=== PATIENT | female | born 1965 ===

== ENCOUNTER 2024-05-11 12:41 | Emergency (ER) | payer BC ==
--- OUTSIDE RECORDS SUMMARY | 2024-05-11 12:45 | XMS REPORT | Continuity of Care Document ---
Author Name Unknown Address [address] [facility] [address] [place] [address] Organization [facility] [place] Address [address] [facility] [address] [place] [address] Care Team Providers Care Precision Machinist Name Role Phone Emily Franz Attending Clinician Unavailable Problems Condition Name Condition Details Condition Category Status Onset Date Resolution Date Last Treatment Date Treating Clinician Comments Source [id number] Long-term current use of injectable noninsulin antidiabet ic medication Problem [facility] [id number] shelter (current) use of oral hypoglycem ic drugs Problem [facility] [id number] Depression with anxiety Problem Active [facility] [id number] Essential hypertensi on Problem Active [facility] [id number] Type 2 diabetes mellitus with hyperglyce gallo, without long-term current use of insulin Problem Active [facility] Vitamin D deficiency Vitamin D deficiency Problem Active [facility] Hypertensi on Hypertensi on Problem Active [facility] Iron deficiency anemia Fe deficiency anemia Problem Active [facility] Mixed hyperlipid emia Mixed hyperlipid emia Problem Active [facility] Allergies, Adverse Reactions, Alerts Allergy Name Allergy Type Status Severity Reaction(s) Onset Date Inactive Date Treating Clinician Comments Source hydrochl orothiaz eusebio hydrochl orothiaz eusebio Active itching [facility] metformi n metformi n Active explosive diarrhea [facility] Social History Social Habit Start Date Stop Date Quantity Comments Source History of Tobacco Use [facility] Sex Assigned At [facility] Smoking Status Start Date Stop Date Source Never Smoker [facility] Medications Ordered Medication Name Filled Medication Name Start Date Stop Date Current Medication? Ordering Clinician Indication Dosage Frequency Signature (SIG) Comments Components Source Vitamin D-3 5000 UNIT/ML Vitamin D-3 5000 UNIT/ML 04-17 00:00: 00 No 1{table t_with_ meals} BID Vitamin D-3 5000 UNIT/ML Ferrous Fumarate 29 MG Ferrous Fumarate 29 MG 04-17 00:00: 00 No Ferrous Fumarate 29 MG Glimepiride 2 MG Glimepiride 2 MG No 1{table t} BID Glimepirid e 2 MG amLODIPine Besylate 10 MG amLODIPine Besylate 10 MG No 1{table t} QD amLODIPine Besylate 10 MG Irbesartan 150 MG Irbesartan 150 MG No 1{table t} QD Irbesartan 150 MG Jardiance 25 MG Jardiance 25 MG No QD Jardiance 25 MG Toprol XL 100 MG Toprol XL 100 MG No 1{table t} QD Toprol XL 100 MG Zoloft 100 MG Zoloft 100 MG No 1{table t} QD Zoloft 100 MG Cetirizine HCl 10 MG Cetirizine HCl 10 MG No 1{table t} QD Cetirizine HCl 10 MG Vitamin C 250 MG Vitamin C 250 MG No 1{table t} QD Vitamin C 250 MG Melatonin 5 MG Melatonin 5 MG No 1{table t_in_th e_eveni ng} QD Melatonin 5 MG Crestor 40 MG Crestor 40 MG No 1{table t} QD Crestor 40 MG Trulicity 4.5 MG/0.5ML Trulicity 4.5 MG/0.5ML No Trulicity 4.5 MG/0.5ML Folic Acid 1 MG Folic Acid 1 MG 02-14 00:00 :00 No 1{table t} QD Folic Acid 1 MG Vital Signs Vital Name Observation Time Observation Value Comments S ource respiratory rate 2024-02-27 15:00:00 15 /min Common [facility] blood pressure systolic 2024-02-27 15:00:00 124 mm[Hg] Common [facility] blood pressure diastolic 2024-02-27 15:00:00 82 mm[Hg] [facility] height 2024-02-27 15:00:00 67 [in_i] Commo n [facility] weight 2024-02-27 15:00:00 273.2 [lb_av] Co mmon [facility] temperature 2024-02-27 15:00:00 96.4 [degF] Com [facility] bmi 2024-02-27 15:00:00 42.78 kg/m2 Comm on [facility] oximetry 2024-02-27 15:00:00 95 % Commo n [facility] height 2023-07-31 15:20:00 67 [in_i] Commo n [facility] weight 2023-07-31 15:20:00 288.2 [lb_av] Co mmon [facility] temperature 2023-07-31 15:20:00 97.1 [degF] Com [facility] bmi 2023-07-31 15:20:00 45.13 kg/m2 Comm on [facility] oximetry 2023-07-31 15:20:00 95 % Commo n [facility] respiratory rate 2023-07-31 15:20:00 16 /min Common [facility] blood pressure systolic 2023-07-31 15:20:00 139 mm[Hg] Common [facility] blood pressure diastolic 2023-07-31 15:20:00 83 mm[Hg] Common [facility] height 2023-07-31 15:20:00 67 [in_i] Commo n [facility] weight 2023-07-31 15:20:00 288.2 [lb_av] Co mmon [facility] temperature 2023-07-31 15:20:00 97.1 [degF] Com mon [facility] bmi 2023-07-31 15:20:00 45.13 kg/m2 Comm on [facility] oximetry 2023-07-31 15:20:00 95 % Commo n [facility] respiratory rate 2023-07-31 15:20:00 16 /min Common [facility] blood pressure systolic 2023-07-31 15:20:00 139 mm[Hg] Common [facility] blood pressure diastolic 2023-07-31 15:20:00 83 mm[Hg] Common [facility] height 2023-01-25 11:00:00 67 [in_i] Commo n [facility] weight 2023-01-25 11:00:00 277.6 [lb_av] Co mmon [facility] temperature 2023-01-25 11:00:00 97.2 [degF] Com mon [facility] bmi 2023-01-25 11:00:00 43.47 kg/m2 Comm on [facility] oximetry 2023-01-25 11:00:00 95 % Commo n [facility] respiratory rate 2023-01-25 11:00:00 16 /min Common [facility] blood pressure systolic 2023-01-25 11:00:00 128 mm[Hg] Common [facility] blood pressure diastolic 2023-01-25 11:00:00 72 mm[Hg] Common [facility] height 2022-08-03 10:00:00 67 [in_i] Commo n [facility] weight 2022-08-03 10:00:00 276.6 [lb_av] Co mmon [facility] temperature 2022-08-03 10:00:00 96.8 [degF] Com [facility] bmi 2022-08-03 10:00:00 43.32 kg/m2 Comm on [facility] oximetry 2022-08-03 10:00:00 96 % Commo n [facility] respiratory rate 2022-08-03 10:00:00 16 /min Common [facility] blood pressure systolic 2022-08-03 10:00:00 137 mm[Hg] Common [facility] blood pressure diastolic 2022-08-03 10:00:00 72 mm[Hg] Common [facility] height 2022-02-02 16:00:00 67 [in_i] Commo n [facility] weight 2022-02-02 16:00:00 283.4 [facility] 16:00:00 97.1 [degF] Com [facility] bmi 2022-02-02 16:00:00 44.38 kg/m2 Comm on [facility] oximetry 2022-02-02 16:00:00 95 % Commo n [facility] respiratory rate 2022-02-02 16:00:00 17 /min Common [facility] blood pressure systolic 2022-02-02 16:00:00 136 mm[Hg] [facility] blood pressure diastolic 2022-02-02 16:00:00 74 mm[Hg] Common [facility] temperature 2021-08-18 10:40:00 97.3 [degF] Com [facility] bmi 2021-08-18 10:40:00 42.03 kg/m2 Comm on [facility] oximetry 2021-08-18 10:40:00 95 % Commo n [facility] respiratory rate 2021-08-18 10:40:00 18 /min Common [facility] blood pressure systolic 2021-08-18 10:40:00 135 mm[Hg] Common [facility] blood pressure diastolic 2021-08-18 10:40:00 71 mm[Hg] Common [facility] height 2021-08-18 10:40:00 67 [in_i] Commo n [facility] weight 2021-08-18 10:40:00 268.4 [lb_av] Co mmon [facility] height 2021-05-17 09:40:00 67 [in_i] Commo n [facility] weight 2021-05-17 09:40:00 277 [lb_av] Comm on [facility] temperature 2021-05-17 09:40:00 97.3 [degF] Com [facility] bmi 2021-05-17 09:40:00 43.38 kg/m2 Comm on [facility] oximetry 2021-05-17 09:40:00 97 % Commo n [facility] respiratory rate 2021-05-17 09:40:00 18 /min [facility] blood pressure systolic 2021-05-17 09:40:00 134 mm[Hg] [facility] blood pressure diastolic 2021-05-17 09:40:00 57 mm[Hg] Common [facility] height 2021-02-16 09:40:00 67 [in_i] Commo n [facility] weight 2021-02-16 09:40:00 277.0 [lb_av] Co mmon [facility] temperature 2021-02-16 09:40:00 97.8 [degF] Com [facility] bmi 2021-02-16 09:40:00 43.38 kg/m2 Comm on [facility] oximetry 2021-02-16 09:40:00 95 % Commo n [facility] respiratory rate 2021-02-16 09:40:00 18 /min [facility] blood pressure systolic 2021-02-16 09:40:00 126 mm[Hg] [facility] blood pressure diastolic 2021-02-16 09:40:00 65 mm[Hg] [facility] Encounters Start Date/Time End Date/Time Encounter Type Admission Type Attending [facility] Facility Care Department Encounter ID Source 2024-02-25 09:49:00 Outpatient Emily Franz STOSWALDO [facility] [id number] [facility] 2023-01-23 13:30:00 Outpatient Emily Franz [facility] [id number] [facility] 2022-01-31 09:43:02 Outpatient Emily Franz [facility] [id number] [facility] 2021-08-16 11:30:01 Outpatient Emily Franz [facility] [id number] [facility] 2021-05-13 09:10:03 Outpatient Emily Franz [facility] [id number] [facility] 2021-03-09 14:31:07 Outpatient Emily Franz [facility] [id number] [facility] 2024-03-06 00:00:00 2024-03-06 00:00:00 (TEL) [facility] [id number] [facility] 2024-02-27 00:00:00 2024-02-27 00:00:00 (WELLNESS) Wellness Visit [facility] [id number] [facility] 2023-07-31 00:00:00 2023-07-31 00:00:00 OFFICE VISIT ESTAB PT LEVEL 4 [facility] [id number] [facility] 2023-01-25 00:00:00 2023-01-25 00:00:00 OFFICE VISIT ESTAB PT LEVEL 4 [facility] [id number] [facility] 2022-08-03 00:00:00 2022-08-03 00:00:00 OFFICE VISIT ESTAB PT LEVEL 4 [facility] [id number] [facility] 2022-02-02 00:00:00 2022-02-02 00:00:00 OFFICE VISIT ESTAB PT LEVEL 4 [facility] [id number] [facility] 2021-09-18 00:00:00 2021-09-18 00:00:00 (TEL) [facility]LMLC [facility] [id number] [facility] 2021-08-18 00:00:00 2021-08-18 00:00:00 OFFICE VISIT ESTAB PT LEVEL 4 [facility] [id number] [facility] 2021-05-17 00:00:00 2021-05-17 00:00:00 OFFICE VISIT ESTAB PT LEVEL 4 [facility] [id number] [facility] 2021-02-16 00:00:00 2021-02-16 00:00:00 OFFICE VISIT ESTAB PT LEVEL 4 [facility] [id number] [facility] Results Test Description Test Time Test Comments Results Result Co mments Source COMPREHENSIVE METABOLIC PANEL(CMP)2022-07-27 00:00:00* Test Item Value Reference Range Interpretation Comme nts ALBUMIN (test code = 1751-7) 4.4 g/dL See_Comment N [Automated message] The system which generated this result transmitted reference range: 3.6-5.1 g/dL. The reference range was not used to interpret this result as normal/abnormal. ALBUMIN/GLOBULIN RATIO (test code = 1759-0) 1.8 (calc) See_Comment N [Automated message] The system which generated this result transmitted reference range: 1.0-2.5 (calc). The reference range was not used to interpret this result as normal/abnormal. ALKALINE PHOSPHATASE (test code = 6768-6) 70 U/L See_Comment N [Automated message] The system which generated this result transmitted reference range: 37-153 U/L. The reference range was not used to interpret this result as normal/abnormal. ALT (test code = 1742-6) 17 U/L See_Comment N [Automated message] The system which generated this result transmitted reference range: 6-29 U/L. The reference range was not used to interpret this result as normal/abnormal. AST (test code = 1920-8) 17 U/L See_Comment N [Automated message] The system which generated this result transmitted reference range: 10-35 U/L. The reference range was not used to interpret this result as normal/abnormal. BILIRUBIN, TOTAL (test code = 1975-2) 0.9 mg/dL See_Comment N [Automated message] The system which generated this result transmitted reference range: 0.2-1.2 mg/dL. The reference range was not used to interpret this result as normal/abnormal. BUN/CREATININE RATIO (test code = 3097-3) NOT APPLICABLE (calc) See_Comment [Automated message] The system which generated this result transmitted reference range: 6-22 (calc). The reference range was not used to interpret this result as normal/abnormal. CALCIUM (test code = 62842-6) 9.4 mg/dL See_Comment N [Automated message] The system which generated this result transmitted reference range: 8.6-10.4 mg/dL. The reference range was not used to interpret this result as normal/abnormal. CARBON DIOXIDE (test code = 8-9) 30 mmol/L See_Comment N [Automated message] The system which generated this result transmitted reference range: 20-32 mmol/L. The reference range was not used to interpret this result as normal/abnormal. CHLORIDE (test code = 2075-0) 100 mmol/L See_Comment N [Automated message] The system which generated this result transmitted reference range: 98-110 mmol/L. The reference range was not used to interpret this result as normal/abnormal. CREATININE (test code = 2160-0) 0.51 mg/dL See_Comment N [Automated message] The system which generated this result transmitted reference range: 0.50-1.03 mg/dL. The reference range was not used to interpret this result as normal/abnormal. GLOBULIN (test code = 73008-7) 2.4 g/dL (calc) See_Comment N [Automated message] The system which generated this result transmitted reference range: 1.9-3.7 g/dL (calc). The reference range was not used to interpret this result as normal/abnormal. GLUCOSE (test code = 2345-7) 165 mg/dL See_Comment H [Automated message] The system which generated this result transmitted reference range: 65-99 mg/dL. The reference range was not used to interpret this result as normal/abnormal. POTASSIUM (test code = 2823-3) 3.7 mmol/L See_Comment N [Automated message] The system which generated this result transmitted reference range: 3.5-5.3 mmol/L. The reference range was not used to interpret this result as normal/abnormal. PROTEIN, TOTAL (test code = 2885-2) 6.8 g/dL See_Comment N [Automated message] The system which generated this result transmitted reference range: 6.1-8.1 g/dL. The reference range was not used to interpret this result as normal/abnormal. SODIUM (test code = 2951-2) 137 mmol/L See_Comment N [Automated message] The system which generated this result transmitted reference range: 135-146 mmol/L. The reference range was not used to interpret this result as normal/abnormal. UREA NITROGEN (BUN) (test code = 3094-0) 20 mg/dL See_Comment N [Automated message] The system which generated this result transmitted reference range: 7-25 mg/dL. The reference range was not used to interpret this result as normal/abnormal. HEMOGLOBIN [id number] 00:00:00* Test Item Value Reference Range Interpretation Comme nts A1C (test code = 4548-4) 6.3 HEMOGLOBIN [id number] 00:00:00* Test Item Value Reference Range Interpretation Comme nts A1C (test code = 4548-4) 8.6
--- NOTE | 2024-05-11 13:53 | RAD REPORT ---
EXAM: Extremity Nonvascular Limited HISTORY: breast COMPARISON: None TECHNIQUE: Sonographic grayscale and color flow imaging of the left chest wall including the region o f interest as described by the patient. FINDINGS: Subcutaneous edema present at the site of concern at the left breast. No abscess identified. IMPRESSION: Subcutaneous edema which may reflect a cellulitis. No abscess at this time. Diagnostic mammogram and ultrasound should be considered nonemergent.
--- NOTE | 2024-05-11 14:05 | EDPHYS ---
Physician Documentation [facility] Name: Mary Epperson Age: 58 yrs Sex: Female : 1965 Arrival Date: 05/11/2024 Time: 12:41 Bed 16 Private MD: ED Physician River Corado HPI: 05/11 13:18 This 58 yrs old Female presents to ER via Ambulatory with complaints of Breast sb4 pain/redness. 13:18 The patient presents with cellulitis of the left breast. Description: The affected area sb4 is moderate sized, localized, erythematous, swollen, warm. Onset: The symptoms/episode began/occurred yesterday. Possible cause(s): unknown. The patient has not experienced similar symptoms in the past. Historical: - Allergies: 12:56 Hydrochlorothiazide; db - Home Meds: 12:56 amlodipine 10 mg tablet [Active]; Toprol XL 100 mg Oral Tablet, Extended Release 24 hr db [Active]; irbesartan 150 mg oral tablet [Active]; glimepiride 2 mg Oral tablet [Active]; Jardiance 25 mg oral tablet [Active]; Zoloft 100 mg Oral tablet [Active]; Zyrtec 10 mg Oral capsule [Active]; Trulicity 3 mg/0.5 mL subcutaneous Pen Injector [Active]; folic acid 1 mg Oral tablet [Active]; - PMHx: 12:56 Hypertensive disorder; Diabetes mellitus; db - Immunization history:: Adult Immunizations unknown. - Infectious Disease History:: Denies. - Social history:: Smoking status: Patient denies any tobacco usage or history of. ROS: 13:18 Constitutional: Negative for fever, chills, and weight loss, sb4 13:18 Skin: Positive for erythema, swelling, of the left breast, 13:18 All other systems are negative, Exam: 13:18 Constitutional: This is a well developed, well nourished patient who is awake, alert, sb4 and in no acute distress. Head/Face: Normocephalic, atraumatic. Eyes: Extra-ocular motions intact. Periorbital areas with no swelling, redness, or edema. ENT: Mucous membranes moist. Respiratory: No increased work of breathing, no retractions or nasal flaring. 13:18 Skin: cellulitis, that is moderate, well demarcated, on the left breast, spares the nipple, no discharge. small area of induration superior to the nipple, Vital Signs: 12:54 BP 123 / 83; Pulse 90; Resp 18; Temp 99.1; Pulse Ox 93% ; Weight 122.47 kg; Height 5 db ft. 7 in. ; Pain 5/10; 14:00 BP 124 / 80; Pulse 73; Resp 18; Temp 98.4; Pulse Ox 93% ; me1 12:54 Body Mass Index 42.29 (122.47 kg, 170.18 cm) db 12:54 Pain Scale: Adult db MDM: 12:46 Medical Screening Exam initiated sb4 14:07 Data reviewed: vital signs, nurses notes, radiologic studies, and as a result, I will sb4 discharge patient. Counseling: I had a detailed discussion with the patient and/or guardian regarding the historical points, exam findings, and any diagnostic results supporting the discharge/admit diagnosis, radiology results, the need for outpatient follow up, for definitive care, to return to the emergency department if symptoms worsen or persist or if there are any questions or concerns that arise at home. 05/11 13:10 Order name: US Nuñez Nonvasular Limited; Complete Time: 13:58 sb4 05/11 13:00 Order name: Jeremy patient; Complete Time: 13:15 sb4 Administered Medications: No medications were administered Disposition: 14:35 Co-signature as Attending Physician, River Corado MD I reviewed the patient's care rn provided by the Advanced Practice Provider and agree with the diagnosis and treatment plan. Disposition Summary: 05/11/24 14:05 Discharge Ordered Notes: Location: Home sb4 Problem: new sb4 Symptoms: have improved sb4 Condition: Stable sb4 Diagnosis - Cellulitis of left breast sb4 Followup: sb4 - With: Emergency Department - When: As needed - Reason: Fever > 102 F, Worsening of condition Discharge Instructions: - Discharge Summary Sheet sb4 - Cellulitis, Adult, [id number] sb4 Forms: - Antibiotic Education sb4 - Patient Portal Instructions sb4 - Leadership Thank You Letter sb4 Prescriptions: - Bactrim DS 800-160 mg Oral Tablet - take 1 tablet ORAL route every 12 hours for 10 days; 20 tablet; Refills: 0, sb4 Product Selection Permitted Signatures: Dispatcher [employer] EDRiver Daly, MD MD rn Shaffer, FRANKLIN Espino RN Ambar Soares, DAISY VILLA sb4
--- NOTE | 2024-05-11 14:05 | ER ---
Nurse's Notes [facility] Name: Mary Epperson Age: 58 yrs Sex: Female : 1965 Arrival Date: 05/11/2024 Time: 12:41 Bed 16 Private MD: Diagnosis: Cellulitis of left breast Presentation: 05/11 12:54 Chief complaint: Patient states: LEFT BREAST RASH TENDER AND HARD TO TOUCH. STARTED db YESTERDAY. Coronavirus screen: Client denies travel out of the [place] in the last 14 days. At this time, the client does not indicate any symptoms associated with coronavirus-19. Ebola Screen: Patient negative for fever greater than or equal to 101.5 degrees Fahrenheit, and additional compatible Ebola Virus Disease symptoms Patient denies exposure to infectious person. Patient denies travel to an Ebola-affected area in the 21 days before illness onset. No symptoms or risks identified at this time. Initial Sepsis Screen: Does the patient meet any 2 criteria? No. Patient's initial sepsis screen is negative. Does the patient have a suspected source of infection? No. Patient's initial sepsis screen is negative. Risk Assessment: Do you want to hurt yourself or someone else? Patient reports no desire to harm self or others. Onset of symptoms was May 10, 2024. 12:54 Method Of Arrival: Ambulatory db 12:54 Acuity: YULIYA 3 db Triage Assessment: 12:56 General: Appears in no apparent distress. comfortable, Behavior is calm, cooperative. db Pain: Complains of pain in left breast Pain currently is 5 out of 10 on a pain scale. Neuro: Level of Consciousness is awake, alert, obeys commands, Oriented to person, place, time, situation. Derm: Rash noted that is red, on left breast. Historical: - Allergies: 12:56 Hydrochlorothiazide; db - Home Meds: 12:56 amlodipine 10 mg tablet [Active]; Toprol XL 100 mg Oral Tablet, Extended Release 24 hr db [Active]; irbesartan 150 mg oral tablet [Active]; glimepiride 2 mg Oral tablet [Active]; Jardiance 25 mg oral tablet [Active]; Zoloft 100 mg Oral tablet [Active]; Zyrtec 10 mg Oral capsule [Active]; Trulicity 3 mg/0.5 mL subcutaneous Pen Injector [Active]; folic acid 1 mg Oral tablet [Active]; - PMHx: 12:56 Hypertensive disorder; Diabetes mellitus; db - Immunization history:: Adult Immunizations unknown. - Infectious Disease History:: Denies. - Social history:: Smoking status: Patient denies any tobacco usage or history of. Screenin:48 [facility] ED Fall Risk Assessment (Adult) History of falling in the last 3 months, me1 including since admission No falls in past 3 months (0 pts) Confusion or Disorientation No (0 pts) Intoxicated or Sedated No (0 pts) Impaired Gait No (0 pts) Mobility Assist Device Used No (0 pt) Altered Elimination No (0 pt) Score/Fall Risk Level 0 - 2 = Low Risk Maintained a safe environment, Provided non-skid footwear, Hourly rounding (assess needs \T\ fall precautionary measures) done. Abuse screen: Denies threats or abuse. Nutritional screening: No deficits noted. Tuberculosis screening: No symptoms or risk factors identified. Assessment: 13:48 General: Appears uncomfortable, well groomed, well developed, well nourished, Behavior me1 is calm, cooperative, appropriate for age, Reports LEFT BREAST RASH TENDER AND HARD TO TOUCH. STARTED YESTERDAY. Pain: Complains of pain in left breast Pain does not radiate. Pain currently is 5 out of 10 on a pain scale. Quality of pain is described as aching, Pain began 1 day ago. Is continuous. Neuro: Level of Consciousness is awake, alert, obeys commands, Oriented to person, place, time, situation, Appropriate for age. Cardiovascular: Patient's skin is warm and dry. Respiratory: Airway is patent Respiratory effort is even, unlabored, Respiratory pattern is regular, symmetrical. GI: No signs and/or symptoms were reported involving the gastrointestinal system. : No signs and/or symptoms were reported regarding the genitourinary system. EENT: No signs and/or symptoms were reported regarding the EENT system. Derm: Rash noted that is red, on left breast. Musculoskeletal: No signs and/or symptoms reported regarding the musculoskeletal system. Vital Signs: 12:54 BP 123 / 83; Pulse 90; Resp 18; Temp 99.1; Pulse Ox 93% ; Weight 122.47 kg; Height 5 db ft. 7 in. ; Pain 5/10; 14:00 BP 124 / 80; Pulse 73; Resp 18; Temp 98.4; Pulse Ox 93% ; me1 12:54 Body Mass Index 42.29 (122.47 kg, 170.18 cm) db 12:54 Pain Scale: Adult db ED Course: 12:42 Patient arrived in ED. ts1 12:45 Ambar Salmon PA-C is PHCP. sb4 12:45 River Corado MD is Attending Physician. sb4 12:56 Triage completed. db 12:59 Arm band placed on. db 13:15 Allison Weldon, RN is Primary Nurse. me1 13:41 US Extrmty Nonvasular Limited In Process Unspecified. EDMS 13:48 Patient has correct armband on for positive identification. Bed in low position. Call me1 light in reach. Side rails up X 1. Provided Education on: POC. Verbalized understanding.. Client placed on continuous cardiac and pulse oximetry monitoring. NIBP monitoring applied. Pulse ox on. NIBP on. 13:48 No provider procedures requiring assistance completed. me1 14:16 Patient did not have IV access during this emergency room visit. me1 Administered Medications: No medications were administered Medication: 13:48 VIS not applicable for this client. me1 Outcome: 14:05 Discharge ordered by . sb4 14:16 Discharged to home ambulatory, with significant other, me1 14:16 Condition: stable 14:16 Discharge instructions given to patient, significant other, Instructed on discharge instructions, follow up and referral plans. medication usage, Demonstrated understanding of instructions, follow-up care, medications, Prescriptions given X 1, 14:16 Patient left the ED. me1 Signatures: Dispatcher [employer] Kenzie Trinidad, RN RN Ambar Salmon PA-C PAJohn sb4 Dominique Cifuentes PAS PAS ts1 Allison Weldon, RN RN me1 Corrections: (The following items were deleted from the chart) 13:48 12:54 Chief complaint: Patient states: LEFT BREAST RASH TENDER AND HARD TO TOUCH. me1 STARTED YESTERDAY db 13:49 13:15 General: Appears me1 me1
[2024-05-11 14:44] VITALS: O2SAT 93
[2024-05-11 14:46] VITALS: BP 124/80; TEMP 98.4
== END 2024-05-11 14:16 | disposition home or self-care (01) ==
LOC: ER 12:41
DX: L03.313 Cellulitis of chest wall (principal)
CPT/HCPCS: 76882